=== PATIENT | male | born 1940 | race Caucasian/White ===

== ENCOUNTER 2016-02-19 01:50 | Day surgery (SDC) | payer MEDICARE, OTHER ==
[~2016-02-19] VITALS: Ht 177.8 cm; Wt 111.8 kg
[2016-02-19] VITALS (8 sets, daily range): BP systolic 107–140; BP diastolic 56–81; PULSE 60–65; RESP 15–19; O2SAT 95–98
[~2016-02-19 01:50] MED LIST: ACET1TAB12 PO; ASPI325T32 PO; ATOR20TA PO; CARV12.5 PO; DOCU100C8 PO; FOLI0.8T PO; FURO-128 PO; GLBR5T PO; LEVO100T6 PO; LISI-571 PO; METF500T4 PO; POTA8TAB8 PO; TAMS0.4C98 PO; [UNRECOGNIZED DRUG - CODE] PO
[2016-02-19] MEDS ORDERED: 0.9% Sodium Chloride 1,000 ML IV PRN (06:28)
[2016-02-19] MEDS ORDERED: CeFAZolin Inj 2 GM in IV Premix 1 EACH IV SCH (06:30)
[2016-02-19 06:46] LABS: BASOPHILS % (AUTO) 0.5 % (0-3); EOSINOPHILS % (AUTO) 2.2 % (0-5); MONOCYTES % (AUTO) 10.8 % (4-12); Mean Corpuscular Hemoglobin 30.4 pg (27.0-35.0); Mean Corpuscular Volume 94.6 fL (81-100); NEUTROPHILS % (AUTO) 72.5 % (40-74); Platelet Count 148 bil/L (150-400)
[2016-02-19] MEDS ORDERED: TIZA4CAP PO (07:07)
[2016-02-19] MEDS ORDERED: FLUT9.9S NS (07:07)
[2016-02-19] MEDS ORDERED: ALBU8.5H2 INHALATION (07:08)
[2016-02-19] MEDS ORDERED: AMOX500C2 PO (07:08)
[2016-02-19] MEDS ORDERED: Heparin 5,000 Units/500 mL NS Premix IV ONE (08:08)
[2016-02-19] MEDS ORDERED: Bupivacaine-MPF 0.5% 30 mL Inj ONE (08:08)
[2016-02-19] MEDS ORDERED: 0.9% Sodium Chloride 250 ML ONE (08:09)
[2016-02-19] MEDS ORDERED: fentaNYL-PF 50 mCg/mL 2 mL Inj ONE (08:13)
[2016-02-19] MEDS ORDERED: 0.9% Sodium Chloride 1,000 ML IV SCH (08:52)
[2016-02-19] MEDS ORDERED: Ondansetron 2 mg/mL 2 mL Inj IVPUSH PRN (08:55)
[2016-02-19] MEDS ORDERED: HYDROcodone-APAP 5-325 mg Tablet PO PRN (08:55)
--- NOTE | 2016-02-19 09:26 | OUT PROC ---
[address] [address] PROCEDURE NOTE PATIENT: ALBERT JACOBSON : 1940 MR#: [id number] ADMIT: 02/19/2016 JOB ID: [id number] DATE OF PROCEDURE: 02/19/2016 PROCEDURE: Pacemaker generator change. INDICATION: End of life. elective replacement interval. CONSENT: The patient was explained the risks, benefits, and alternatives of the procedure. Informed signed consent was obtained and placed in the chart. DESCRIPTION OF PROCEDURE: The patient was brought to the cath laboratory and placed on the cath table. The left inferolateral pectoral area was prepped and draped in the usual sterile manner. Lidocaine 1% was infiltrated over the previous pacemaker site. A surgical incision was made approximately 2-3 inches. Skin, subcutaneous layer was dissected. The capsule was identified and was again dissected in the same planes. The pacemaker generator was enucleated from the capsule and the anchoring suture was released. Subsequently, the generator was pulled out of the pacemaker pocket. The pacemaker pocket was further extended inferiorly. The generator was removed from the pacemaker wire and exchanged with a new pacemaker generator. Good sensing and pacing parameter functions were obtained. The new generator for identification is model ADSR01, serial #[id number]. [employer]. Implant date February 19, 2016. Subsequently, the pacemaker pocket was irrigated with antibiotic solution. The anchoring suture was given to the pacemaker generator to secure it in the pocket. The subcutaneous layer was closed with 2-0 polyabsorbable suture. The skin and subcu layer was closed with 4-0 absorbable sutures. The patient was taken out of the cath laboratory in stable condition. DEVICE IDENTIFICATION: Pacemaker generator [employer], Model ADSR01, serial #[id number]. MEASURED DATA: R-wave of 5.0 mV, pacing impedance of 700 ohms and pacing threshold of 1.5 volts at 50 msec. IMPRESSION: Successful pacemaker generator change out. TISHA
--- NOTE | 2016-02-19 11:07 | NUR ---
Discharge instructions reviewed with patient and spouse. Left pacemaker site without bleeding, oozing, or hematoma. Pt discharged ambulatory.
== END 2016-02-19 23:59 | disposition home or self-care (01) ==
LOC: SOUO 01:50
PROVIDERS: ATTEND Internal Medicine Cardiovascular Disease
DX: Z45.010 Encounter for checking and testing of cardiac pacemaker pulse generator [battery] (principal); E78.5 Hyperlipidemia, unspecified; Z95.1 Presence of aortocoronary bypass graft; Z95.3 Presence of xenogenic heart valve; Z79.82 Long term (current) use of aspirin; I25.10 Atherosclerotic heart disease of native coronary artery without angina pectoris; I48.91 Unspecified atrial fibrillation; E03.9 Hypothyroidism, unspecified; G47.31 Primary central sleep apnea; I50.22 Chronic systolic (congestive) heart failure
CPT/HCPCS: 33227; 36415; 80048; 85025; C1769; C1786; J0690; J1644; J2060; J2250; J7050